=== PATIENT | female | born 1985 | race Caucasian/White ===

== ENCOUNTER → 2016-12-04 | Outpatient (CLI) | payer OTHER | LOC: RAD 14:47 | PROVIDERS: ATTEND Nurse Practitioner Family | DX: M25.522 Pain in left elbow (principal) | CPT/HCPCS: 73080 ==

== ENCOUNTER 2017-01-01 13:00 | Outpatient (RCR) | payer OTHER ==
--- NOTE | 2016-12-25 13:43 | PT/OT/ST INITIAL EVALUATION ---
Department of Health and Human Services Form Approved Health Care Financing Administration OMB No. [id number] PLAN OF CARE/ASSESSMENT FOR OUTPATIENT REHABILITATION (Complete for Initial Claims Only) 1. PATIENT'S NAME Emma Bourne 2. ACC # [id number] 3. HICN NA 4. PROVIDER NO. [id number] 5. TYPE: OT 6. PRIOR HOSPITALIZATION NA 7. PRIMARY DX M77.12-lateral epicondylitis, left elbow. 8. TREATMENT DX Weakness 9. ONSET DATE Approximately 3 weeks ago 10. REFERRAL DATE 12/12/2016 11. SOC. DATE 12/20/2016 12. TIME OF EVAL 8:04 a.m. to 9:02 a.m. 12. REFERRING PHYSICIAN Leyla Broderick APRN 13. CHARGES/UNITS Total 58 minutes 30 evaluation- [id number] low complexity 09/17 iontophoresis 0 ultrasound 09/19 manual therapy 14. G CODES NA 15. PRIOR LEVEL OF FUNCTION; PERTINENT HISTORY (Prior therapy results, reason for referral.) S: Reason for referral: The patient is a 31-year-old female referred by Leyla Broderick APRN to address occupational concerns secondary to left lateral epicondylitis. Description/mechanism of injury: The patient reports pain in left elbow starting about 3 weeks ago. Pt reports no specific incident occurring, but states she was pushing and pulling heavy equipment at work. 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 The patient reports attempting ice and heat and wearing a counterforce brace with no relief in pain levels. Home set up/Prior level of function: The patient lives with her 3 children. Prior to onset the patient was independence with ADLs and IADL tasks, including all work tasks. Current functional performance and deficits: The patient is right handed. The patient reports significant pain with all daily activities and work tasks. The patient reports 8/10 pain at rest and difficulty incorporating left upper extremity in daily activities requiring use of right hand for all tasks. The patient is on a 5-pound weight restriction at work at this time. Pt has been moved to another work station to accommodate her restrictions. Additionally the patient reports difficulty with sleeping secondary to achy symptoms and increased pain levels. The patient reports occasional numbness radiating into upper arm and into the fingers. Pain level and location: 8/10 along left epicondyle area. Aggravating factors: Any movement of the left upper extremity. Relieving factors: The patient reports no relieving factors at this time. Diagnostic testing: The patient has completed x-ray testing with results unremarkable. PMH (PT, OT, hospitalizations): Carpal tunnel. The patient has completed previous occupational therapy services for wrist concerns and following carpal tunnel release. Current medications: Advil/ibuprofen, Cymbalta and phentermine. No medication to complicate therapy. Personal health rating: Good Patient's Goal: The patients goals are to decrease pain and allow for ability to return to all activities with no difficulty. 16. INITIAL ASSESSMENT/SAFETY PRECAUTIONS/MEDICAL COMPLICATIONS (Level of function at start of care. Be specific, use objective measures, list problems.) O: APPEARANCE, OBSERVATION AND GAIT: The patient appeared to her initial occupational therapy evaluation this date. The patient was observed to be wearing a counterforce brace on her proximal left forearm. Within active range of motion movements, the patient was able to complete all bilateral shoulder, elbow and wrist measurements within functional limits, however, the patient reports pain with all active movements with pain radiating distally with supination. Pt reports 8/10 pain with resist wrist flexion and extension. Pt reports 9/10 pain with resistive supination and 8/10 pain with resistive pronation. CIRCUMFERENCE/EDEMA: 20 cm from wrist crease: L 29.4 Cm, R 29.6 cm ASSESSMENTS: Chief I Dispatcher strength: right 72, left 34 with report of 9/10 pain. Pinch strength: 2 point pinch: right 12 pounds, left 10 pounds with 9/10 pain. 3-point pinch: right 14 pounds, left 10 pounds with 9/10 pain. Lateral pinch: right 16 pounds, left 12 pounds with 9/10 pain. OUTCOME ASSESSMENTS: The QuickDASH was completed this date with a score of 72.72. A score of 0 indicates no difficulties or limitations with daily activities or leisure tasks. The patient reports the pain over the past 24 hours as 10/10. SPECIAL TESTING: The therapist completed Cozen's test with the patient reporting an increase in pain along lateral epicondyle area, indicating positive results. Mill's test completed with the patient reporting an increase in pain along lateral epicondyle area, indicating positive results. Elbow flexion test, the patient reported no increase in numbness, tingling or symptoms, resulting in a negative test. Long extension test completed with reported pain along dorsal forearm. With resistive supination and pronation, the patient reports 9/10 pain and 8/10 pain respectively. CONTRAINDICATIONS, PRECAUTIONS AND OBSTACLES TO DELIVERY OF CARE: None INFORMED CONSENT: The occupational therapist discussed the OT diagnosis, prognosis, treatment plan, risks and expected outcome with the patient. The patient and family agreed to the OT plan of care this date. PALPATION: The patient reports severe tenderness along left lateral epicondyle area. TODAY'S TREATMENT: Today's treatment included education about occupational therapy and occupational therapy process. Additionally provided education to the patient on activity modifications techniques at work and at home to help reduce pain symptoms and provide relief. The therapist completed ultrasound 3.0 MHz 1.5 Wcm2 continuous for 10 minutes along forearm and left lateral epicondyle area to increase blood circulation and decrease pain. Completed soft tissue mobilization with the use of a tool along forearm with noted significant muscle tightness in proximal forearm. The patient was given exercises of wrist forearm and extensor stretches for home program. The therapist applied iontophoresis dexamethasone along left lateral epicondyle to reduce pain and inflammation. 17. INITIAL POC: (Specify procedures, modalities, short and termite treater goals) A: The patient presents to occupational therapy with decreased strength, decreased activity tolerance, increased pain with movement of LUE secondary to a diagnosis of left lateral epicondylitis. The patient would benefit from skilled occupational therapy services for design and administration of therapeutic activities and exercises for return to prior level of function with no difficulty. PROBLEMS/IMPAIRMENTS/FUNCTIONAL LOSS: Include increased pain levels and decreased ability to handle, manipulate and carry everyday items with left upper extremity resulting in inability to complete work tasks and complete daily activities. INTENDED OUTCOMES: Include reduce pain levels, increase strength and activity tolerance of left upper extremity for return to prior level of function. Additionally to provide education on activity modification techniques and education to prevent onset of future injuries. REHAB POTENTIAL/PROGNOSIS: The patient is expected to have a good prognosis with consistent therapy attendance and completion of home exercise program and following therapist's recommendations. SHORT TERM GOALS: x 1 WEEK 1. The patient will verbalize and demonstrate compliance with home exercise program. 2. The patient will demonstrate the ability to manipulate 6/10 containers using left hand with 2/10 pain or less to improve ability to participate in work tasks. CUSTODIAL GOALS x 2 WEEKS 1. The patient will report a decrease in QuickDASH score of 15 to 20 points to indicate meaningful change and increased independence with daily activities and work tasks. 2. The patient will demonstrate ability to lift a 5 pound item using bilateral upper extremities with use of activity techniques to improve performance during work tasks. P: Plan to treat the patient 3 times a week for 2 weeks in order to address occupational concerns. The treatment is to include modalities, manual therapy, soft tissue mobilization, therapeutic exercise, active range of motion, passive range of motion, therapeutic activities, ADL/self-care, patient education/home exercise program and other treatments as indicated. 18. FREQUENCY 3 times per week 19. DURATION 2 weeks 20. FUNCTIONAL LEVEL (End of claim period) 21. PHYSICIAN SIGNATURE ? ON FILE OR ENTER HERE: 22. DATE: I certify the need for these services furnished under this plan of care and if for partial hospitalization. 23. CERTIFICATION FROM THROUGH FORM [id number]
[~2017-01-01 13:00] MED LIST: PNV1TABL56 PO; no home meds
== END 2017-01-05 12:00 | disposition home or self-care (01) ==
LOC: OT 13:00
PROVIDERS: ATTEND Nurse Practitioner Family
DX: M77.12 Lateral epicondylitis, left elbow (principal)

== ENCOUNTER → 2017-01-25 | Outpatient (CLI) | payer OTHER ==
--- NOTE | 2017-01-25 16:32 | Diagnostic Imaging Report ---
INDICATION: Left arm paresthesia. AP and lateral views of the cervical spine were obtained. FINDINGS: Vertebral body heights and alignment appear normal. Disc spaces are well maintained. There is no prevertebral soft tissue swelling. Atlantoaxial relationship is normal. Odontoid is intact. IMPRESSION: Negative cervical spine. Dictated by: Dictated on workstation # [id number]
--- NOTE | 2017-01-25 16:56 | Diagnostic Imaging Report ---
INDICATION: Left arm numbness. EXAMINATION: Thoracic spine. FINDINGS: AP and lateral views of the thoracic spine show normal vertebral body height and alignment. There are no compression fractures. Disc spaces are well maintained. IMPRESSION: Negative thoracic spine. Dictated by: Dictated on workstation # [id number]
== END ==
LOC: RAD 15:37
PROVIDERS: ATTEND Chiropractor
DX: G54.0 Brachial plexus disorders (principal)
CPT/HCPCS: 72040; 72072